=== PATIENT | female | born 1985 | race Caucasian/White ===

== ENCOUNTER 2024-12-04 11:15 | Observation (INO) | payer OTHER ==
--- NOTE | 2024-12-04 12:07 | ERPHSYRPT ---
- History of Present Illness Time Seen by Provider: 12/04/24 12:00 Source: patient Exam Limitations: no limitations Patient Subjective Stated Complaint: pt states that she has been sober for 9 months. pt states that she drank a wine bottle size of vodka last night Triage Nursing Assessment: pt came into the er via wheelchair; pt is axo x4; c/o withdrawal; pt states 7/10 pain to RUQ; active bowel sounds in all quads; c/o N/V; pt is screaming and yelling out; pt is crying; pt is theatrical with body movement; skin PDW; no respiratory distress present; hypertensive Physician History: 39-year-old female presents to our ED for evaluation of nausea vomiting epigastric pain. Patient believes she is in alcohol withdrawal. Patient states that she has been sober from alcohol for approximately 9 months. Patient states her kids were recently taken from her. Patient went on a drinking binge last night. Patient states she had a wine bottle full of vodka. Her last drink was at approximately midnight. Patient awoke this morning feeling ill with nausea and vomiting. Patient's epigastric pain radiates to the right upper quadrant. No back radiation. No trauma no fever. Symptoms are mild to moderate in intensity. Palpation reproduces symptomology. Patient otherwise feels well. She voices no other complaints or concerns at this time. Portions of this note were created with voice recognition technology. There may be grammatical, spelling, punctuation or sound alike errors Timing/Duration: today Severity: moderate Modifying Factors: Improves With: nothing Associated Symptoms: denies symptoms Allergies/Adverse Reactions: Penicillins Allergy (Verified 12/04/24 11:23) Rash Home Medications: Ondansetron ODT 4 MG [Zofran Odt 4 mg] 1 tab PO Q4HPRN PRN 12/04/24 [History] hydrOXYzine HCL [Hydroxyzine HCl] 50 mg PO DAILY PRN 12/04/24 [History] Hx Tetanus, Diphtheria Vaccination/Date Given: Yes Hx Influenza Vaccination/Date Given: Yes Hx Pneumococcal Vaccination/Date Given: No Travel Risk - International Travel Have you traveled outside of the country in past 3 weeks: No - Emerging Infectious Disease Are you exhibiting symptoms associated with any current EIDs: Yes Symptoms: Vomitting - Review of Systems Constitutional: No Symptoms (2.), No Fever, No Chills Eyes: No Symptoms Ears, Nose, & Throat: No Symptoms Respiratory: No Symptoms, No Cough, No Dyspnea Cardiac: No Symptoms, No Chest Pain, No Edema, No Syncope Abdominal/Gastrointestinal: No Symptoms, No Abdominal Pain, No Nausea, No Vomiting, No Diarrhea Genitourinary Symptoms: No Symptoms, No Dysuria Musculoskeletal: No Symptoms, No Back Pain, No Neck Pain Skin: No Symptoms, No Rash Neurological: No Symptoms, No Dizziness, No Focal Weakness, No Sensory Changes Psychological: No Symptoms Endocrine: No Symptoms Hematologic/Lymphatic: No Symptoms Immunological/Allergic: No Symptoms All Other Systems: Reviewed and Negative - Past Medical History Pertinent Past Medical History: Yes Neurological History: No Pertinent History ENT History: No Pertinent History Cardiac History: No Pertinent History Respiratory History: No Pertinent History Endocrine Medical History: No Pertinent History Musculoskeletal History: No Pertinent History GI Medical History: Pancreatitis History: No Pertinent History Psycho-Social History: Anxiety Female Reproductive Disorders: No Pertinent History - Past Surgical History Past Surgical History: Yes Neuro Surgical History: No Pertinent History Cardiac: No Pertinent History Respiratory: No Pertinent History Gastrointestinal: No Pertinent History Genitourinary: No Pertinent History Musculoskeletal: No Pertinent History Female Surgical History: Hysterectomy, Tubal Ligation, Breast Implant - Female History Hx Last Menstrual Period: hysterectomy Hx Now: No - Social History Smoking Status: Light tobacco smoker Exposure to second hand smoke: Yes Drug Use: none - Social Determinants of Health Will the patient participate in the screening: Yes Do you worry about a steady place to live?: No Do you have any problems with any of the following?: No known problems In the past 12 months,have you had to go without utilities?: No Transportation Issues: No Has anyone in your support network made you feel unsafe?: No Have you or anyone in your house had to go without enough: No - Nursing Vital Signs Nursing Vital Signs: Initial Vital Signs Temperature 98.2 F 12/04/24 11:25 Pulse Rate 99 H 12/04/24 11:25 Respiratory Rate 24 12/04/24 11:25 Blood Pressure 144/87 12/04/24 11:25 O2 Sat by Pulse Oximetry 98 12/04/24 11:25 Pain Scale Pain Intensity 0 - Physical Exam General Appearance: no apparent distress, alert, other (Patient is vomiting and shaking. Patient also crying.) Eye Exam: PERRL/EOMI, eyes nml inspection Ears, Nose, Throat Exam: normal ENT inspection, TMs normal, pharynx normal, moist mucous membranes Neck Exam: normal inspection, non-tender, supple, full range of motion Respiratory Exam: normal breath sounds, lungs clear, airway intact, No respiratory distress Cardiovascular Exam: regular rate/rhythm, normal heart sounds, normal peripheral pulses Gastrointestinal/Abdomen Exam: soft, normal bowel sounds, No tenderness, No mass Back Exam: normal inspection, normal range of motion, No CVA tenderness, No vertebral tenderness Extremity Exam: normal inspection, normal range of motion, pelvis stable Neurologic Exam: alert, oriented x 3, cooperative, normal mood/affect, sensation nml, No motor deficits Skin Exam: normal color, warm, dry, No rash Lymphatic Exam: No adenopathy SpO2 Interpretation: normal SpO2: 97 O2 Delivery: Room Air - Course Nursing assessment & vital signs reviewed: Yes - CT Exams Abdomen/Pelvis CT Interpretation: Tele-radiologist Report (No acute findings) Ordered Tests: Active Orders 24 hr Category Date Time Status Drug Safety Specialist STAT Care 12/04/24 12:04 Active IV Insertion STAT Care 12/04/24 12:03 Active ABDOMEN AND PELVIS W CONTRAST [CT] Stat Exams 12/04/24 12:56 Completed ACETAMINOPHEN Stat Lab 12/04/24 12:25 Completed CBC W DIFF Stat Lab 12/04/24 12:25 Completed CMP Stat Lab 12/04/24 12:25 Completed ETHYL ALCOHOL Stat Lab 12/04/24 12:25 Completed HCG QUALITATIVE, URINE Stat Lab 12/04/24 Completed LIPASE Stat Lab 12/04/24 12:25 Completed SALICYLATE Stat Lab 12/04/24 12:25 Completed TROPONIN Q4H Lab 12/04/24 12:25 Completed TROPONIN Q4H Lab 12/04/24 16:15 Ordered TROPONIN Q4H Lab 12/04/24 20:15 Ordered UA W/RFX UR CULTURE Stat Lab 12/04/24 12:33 Completed Urine Triage Profile Stat Lab 12/04/24 12:33 Completed Transfer Order Routine Transfer 12/04/24 Ordered Medication Summary Discontinued Medications Generic Name Dose Route Start Last Admin Trade Name Freq PRN Reason Stop Dose Admin Sodium Chloride 1,000 mls @ 999 mls/hr 12/04/24 12:03 12/04/24 13:23 Sodium Chloride 0.9% 1000 Ml IV 12/04/24 13:03 Infused .Q1H1M STA Infusion Sodium Chloride Confirm 12/04/24 12:11 Sodium Chloride 0.9% 1000 Ml Administered 12/04/24 12:12 Dose 1,000 mls @ ud .ROUTE .STK-MED ONE Lorazepam 1 mg 12/04/24 12:05 12/04/24 12:12 Lorazepam 2 Mg/1 Ml 2 Mg Vial IV 12/04/24 12:06 1 mg STAT ONE Administration Lorazepam Confirm 12/04/24 12:10 Lorazepam 2 Mg/1 Ml 2 Mg Vial Administered 12/04/24 12:11 Dose 2 mg .ROUTE .STK-MED ONE Lorazepam 1 mg 12/04/24 13:32 12/04/24 13:35 Lorazepam 2 Mg/1 Ml 2 Mg Vial IV 12/04/24 13:33 1 mg STAT ONE Administration Lorazepam Confirm 12/04/24 13:34 Lorazepam 2 Mg/1 Ml 2 Mg Vial Administered 12/04/24 13:35 Dose 2 mg .ROUTE .STK-MED ONE Ondansetron HCl 4 mg 12/04/24 12:20 12/04/24 12:21 Ondansetron Hcl 4 Mg/2 Ml Vial IV 12/04/24 12:21 4 mg STAT ONE Administration Ondansetron HCl Confirm 12/04/24 12:20 Ondansetron Hcl 4 Mg/2 Ml Vial Administered 12/04/24 12:21 Dose 4 mg .ROUTE .STK-MED ONE Lab/Rad Data: Laboratory Result Diagrams 12/04/24 12:25 12/04/24 12:25 Laboratory Results 12/04/24 12/04/24 12/04/24 Range/Units Unknown 12:33 12:33 WBC (3.98-10.04) x10^3/uL RBC (3.93-5.22) x10^6/uL Hgb (11.2-15.7) g/dL Hct (34.1-44.9) % MCV (79.4-94.8) fL MCH (25.6-32.2) pg MCHC (32.2-35.5) g/dL RDW (11.7-14.4) % Plt Count (182-369) x10^3/uL MPV (9.4-12.3) fL Gran % (34.0-71.1) % Immature Gran % (Auto) (0.001-0.429) % Nucleat RBC Rel Count (0.00-0.2) % Eos # (Auto) (0.04-0.36) x10^3/uL Immature Gran # (Auto) (0.001-0.031) x10^3u/L Absolute Lymphs (auto) (1.18-3.74) x10^3/uL Absolute Monos (auto) (0.24-0.86) x10^3/uL Absolute Nucleated RBC (0.00-0.012) x10^3u/L Lymphocytes % (19.3-51.7) % Monocytes % (4.7-12.5) % Eosinophils % (0.7-5.8) % Basophils % (0.1-1.2) % Absolute Granulocytes (1.56-6.13) x10^3/uL Basophils # (0.01-0.08) x10^3/uL Sodium (135-145) mmol/L Potassium (3.5-5.1) mmol/L Chloride (98-107) mmol/L Carbon Dioxide (22-30) mmol/L Anion Gap (5-15) MEQ/L BUN (7-17) mg/dL Creatinine (0.52-1.04) mg/dL Estimated GFR ML/MIN Glucose (74-106) mg/dL Calcium (8.4-10.2) mg/dL Total Bilirubin (0.2-1.3) mg/dL AST (14-36) U/L ALT (0-35) U/L Alkaline Phosphatase (38-126) U/L Troponin I (0.000-0.033) ng/mL Serum Total Protein (6.3-8.2) g/dL Albumin (3.5-5.0) g/dL Lipase (23-300) U/L Urine Color Yellow (Yellow) Urine Appearance Cloudy A (Clear) Urine pH 8.0 (4.6-8.0) Ur Specific [place] 1.020 (1.005-1.030) Urine Protein Trace A (Negative) Urine Glucose (UA) Negative (Negative) mg/dL Urine Ketones Negative (Negative) Urine Blood Negative (Negative) Urine Nitrite Negative (Negative) Urine Bilirubin Negative (Negative) Urine Urobilinogen 0.2 (0.2) mg/dL Ur Leukocyte Esterase Negative (Negative) U Hyaline Cast (Auto) NONE SEEN (0-2) /LPF Urine Microscopic RBC 0-2 (0-5) /HPF Urine Microscopic WBC 6-10 A (0-5) /HPF Ur Epithelial Cells Many A (None Seen) /HPF Urine Bacteria Rare A (None Seen) /HPF Urine Culture Reflexed NO (NO) Urine HCG, Qual NEGATIVE (NEGATIVE) Salicylates (2-20) mg/dL Urine Opiates Level NEGATIVE (NEGATIVE) Ur Methadone NEGATIVE (NEGATIVE) Acetaminophen (10-30) ug/ml Urine Barbiturates NEGATIVE (NEGATIVE) Ur Phencyclidine (PCP) NEGATIVE (NEGATIVE) Urine Amphetamine NEGATIVE (NEGATIVE) U Benzodiazepine Level NEGATIVE (NEGATIVE) Urine Cocaine NEGATIVE (NEGATIVE) Urine Marijuana (THC) POSITIVE A (NEGATIVE) Ethyl Alcohol (0-10) mg/dL 12/04/24 12/04/24 12/04/24 Range/Units 12:25 12:25 12:25 WBC (3.98-10.04) x10^3/uL RBC (3.93-5.22) x10^6/uL Hgb (11.2-15.7) g/dL Hct (34.1-44.9) % MCV (79.4-94.8) fL MCH (25.6-32.2) pg MCHC (32.2-35.5) g/dL RDW (11.7-14.4) % Plt Count (182-369) x10^3/uL MPV (9.4-12.3) fL Gran % (34.0-71.1) % Immature Gran % (Auto) (0.001-0.429) % Nucleat RBC Rel Count (0.00-0.2) % Eos # (Auto) (0.04-0.36) x10^3/uL Immature Gran # (Auto) (0.001-0.031) x10^3u/L Absolute Lymphs (auto) (1.18-3.74) x10^3/uL Absolute Monos (auto) (0.24-0.86) x10^3/uL Absolute Nucleated RBC (0.00-0.012) x10^3u/L Lymphocytes % (19.3-51.7) % Monocytes % (4.7-12.5) % Eosinophils % (0.7-5.8) % Basophils % (0.1-1.2) % Absolute Granulocytes (1.56-6.13) x10^3/uL Basophils # (0.01-0.08) x10^3/uL Sodium 138 (135-145) mmol/L Potassium 3.6 (3.5-5.1) mmol/L Chloride 107 (98-107) mmol/L Carbon Dioxide 20 L (22-30) mmol/L Anion Gap 14.7 (5-15) MEQ/L BUN 4 L (7-17) mg/dL Creatinine 0.66 (0.52-1.04) mg/dL Estimated GFR 113.0 ML/MIN Glucose 163 H (74-106) mg/dL Calcium 9.2 (8.4-10.2) mg/dL Total Bilirubin 0.90 (0.2-1.3) mg/dL AST 42 H (14-36) U/L ALT 29 (0-35) U/L Alkaline Phosphatase 71 (38-126) U/L Troponin I < 0.012 (0.000-0.033) ng/mL Serum Total Protein 7.7 (6.3-8.2) g/dL Albumin 4.3 (3.5-5.0) g/dL Lipase 61 (23-300) U/L Urine Color (Yellow) Urine Appearance (Clear) Urine pH (4.6-8.0) Ur Specific [place] (1.005-1.030) Urine Protein (Negative) Urine Glucose (UA) (Negative) mg/dL Urine Ketones (Negative) Urine Blood (Negative) Urine Nitrite (Negative) Urine Bilirubin (Negative) Urine Urobilinogen (0.2) mg/dL Ur Leukocyte Esterase (Negative) U Hyaline Cast (Auto) (0-2) /LPF Urine Microscopic RBC (0-5) /HPF Urine Microscopic WBC (0-5) /HPF Ur Epithelial Cells (None Seen) /HPF Urine Bacteria (None Seen) /HPF Urine Culture Reflexed (NO) Urine HCG, Qual (NEGATIVE) Salicylates < 1.0 L (2-20) mg/dL Urine Opiates Level (NEGATIVE) Ur Methadone (NEGATIVE) Acetaminophen < 10 L (10-30) ug/ml Urine Barbiturates (NEGATIVE) Ur Phencyclidine (PCP) (NEGATIVE) Urine Amphetamine (NEGATIVE) U Benzodiazepine Level (NEGATIVE) Urine Cocaine (NEGATIVE) Urine Marijuana (THC) (NEGATIVE) Ethyl Alcohol < 10 (0-10) mg/dL 12/04/24 Range/Units 12:25 WBC 8.3 (3.98-10.04) x10^3/uL RBC 4.92 (3.93-5.22) x10^6/uL Hgb 16.2 H (11.2-15.7) g/dL Hct 46.8 H (34.1-44.9) % MCV 95.1 H (79.4-94.8) fL MCH 32.9 H (25.6-32.2) pg MCHC 34.6 (32.2-35.5) g/dL RDW 12.9 (11.7-14.4) % Plt Count 254 (182-369) x10^3/uL MPV 8.3 L (9.4-12.3) fL Gran % 69.4 (34.0-71.1) % Immature Gran % (Auto) 0.4 (0.001-0.429) % Nucleat RBC Rel Count 0.0 (0.00-0.2) % Eos # (Auto) 0.08 (0.04-0.36) x10^3/uL Immature Gran # (Auto) 0.03 (0.001-0.031) x10^3u/L Absolute Lymphs (auto) 1.56 (1.18-3.74) x10^3/uL Absolute Monos (auto) 0.77 (0.24-0.86) x10^3/uL Absolute Nucleated RBC 0.00 (0.00-0.012) x10^3u/L Lymphocytes % 18.8 L (19.3-51.7) % Monocytes % 9.3 (4.7-12.5) % Eosinophils % 1.0 (0.7-5.8) % Basophils % 1.1 (0.1-1.2) % Absolute Granulocytes 5.79 (1.56-6.13) x10^3/uL Basophils # 0.09 H (0.01-0.08) x10^3/uL Sodium (135-145) mmol/L Potassium (3.5-5.1) mmol/L Chloride (98-107) mmol/L Carbon Dioxide (22-30) mmol/L Anion Gap (5-15) MEQ/L BUN (7-17) mg/dL Creatinine (0.52-1.04) mg/dL Estimated GFR ML/MIN Glucose (74-106) mg/dL Calcium (8.4-10.2) mg/dL Total Bilirubin (0.2-1.3) mg/dL AST (14-36) U/L ALT (0-35) U/L Alkaline Phosphatase (38-126) U/L Troponin I (0.000-0.033) ng/mL Serum Total Protein (6.3-8.2) g/dL Albumin (3.5-5.0) g/dL Lipase (23-300) U/L Urine Color (Yellow) Urine Appearance (Clear) Urine pH (4.6-8.0) Ur Specific [place] (1.005-1.030) Urine Protein (Negative) Urine Glucose (UA) (Negative) mg/dL Urine Ketones (Negative) Urine Blood (Negative) Urine Nitrite (Negative) Urine Bilirubin (Negative) Urine Urobilinogen (0.2) mg/dL Ur Leukocyte Esterase (Negative) U Hyaline Cast (Auto) (0-2) /LPF Urine Microscopic RBC (0-5) /HPF Urine Microscopic WBC (0-5) /HPF Ur Epithelial Cells (None Seen) /HPF Urine Bacteria (None Seen) /HPF Urine Culture Reflexed (NO) Urine HCG, Qual (NEGATIVE) Salicylates (2-20) mg/dL Urine Opiates Level (NEGATIVE) Ur Methadone (NEGATIVE) Acetaminophen (10-30) ug/ml Urine Barbiturates (NEGATIVE) Ur Phencyclidine (PCP) (NEGATIVE) Urine Amphetamine (NEGATIVE) U Benzodiazepine Level (NEGATIVE) Urine Cocaine (NEGATIVE) Urine Marijuana (THC) (NEGATIVE) Ethyl Alcohol (0-10) mg/dL - Progress Progress: improved Progress Note: 39-year-old female presents to our ED for evaluation of alcohol withdrawal. Up on arrival patient was experiencing nausea and vomiting. Patient appeared very upset stating that her was trying to take custody of her children. Physical exam revealed epigastric tenderness and right upper quadrant tenderness. IV fluids infused. Patient received 2 doses of 1 mg Ativan. Ativan improved her symptomology. CT abdomen pelvis negative for acute intra- abdominal pathology. Case discussed with who accepts admission to observation at 3:25 PM. Plan of care discussed with patient. She agrees to admission to [facility] for further evaluation and treatment. Portions of this note were created with voice recognition technology. There may be grammatical, spelling, punctuation or sound alike errors Complexity of problem addressed is moderate acute complicated. Critical care time 75 to 104 minutes.. Immediate intervention implemented to prevent further deterioration. Complexity of data reviewed and analyzed is extensive. Test o rdered test reviewed results analyzed and correlated clinically with history and physical exam. Management discussed with hospitalist Dr Goyal who accepts admission to observation at 3:25 PM. Risk of complication and or risk of morbidity/mortality of patient management is high. Patient requires h ospitalization for further evaluation and treatment. Vital stable. Time spent to admit patient is approximately 15 minutes. Plan of care established for shared decision making. No social determinants of health present to impede follow-up. Portions of this note were created with voice recognition technology. There may be grammatical, spelling, punctuation or sound alike errors. 12/04/24 15:29 Counseled pt/family regarding: lab results, diagnosis, rad results - Departure Departure Disposition: Observation Clinical Impression: Alcohol withdrawal Condition: Stable Critical Care Time: Yes Critical Care Time(excluding separately billable procedures): Critical 75-104 mins Referrals: DOCTOR,NO FAMILY [Primary Care Provider] - Follow up/PCP as directed
[2024-12-04] MEDS ORDERED: Ativan 2 MG/1 ML VIAL ONE ×2 (12:10→13:34)
[2024-12-04] MEDS ORDERED: Sodium Chloride 0.9% 1000 ML 1,000 ML ONE (12:11)
[2024-12-04] MEDS: Ativan 2 MG/1 ML VIAL IV ONE ×2 (12:12→13:35)
[2024-12-04] MEDS: Sodium Chloride 0.9% 1000 ML 1,000 ML IV STA (12:12)
[2024-12-04] MEDS ORDERED: Zofran 4 MG/2 ML VIAL ONE (12:20)
[2024-12-04] MEDS: Zofran 4 MG/2 ML VIAL IV ONE (12:21)
[2024-12-04 12:26] LABS: Absolute Neutrophil Ct (ANC) 5.79 x10^3/uL (1.56-6.13); BASOPHIL % 1.1 % (0.1-1.2); Basophil (Absolute #) 0.09 x10^3/uL (0.01-0.08); Eosinophil (Absolute #) 0.08 x10^3/uL (0.04-0.36); Hematocrit 46.8 % (34.1-44.9); Hemoglobin 16.2 g/dL (11.2-15.7); IMMATURE GRAN # 0.03 x10^3u/L (0.001-0.031); IMMATURE GRAN % 0.4 % (0.001-0.429); Lymphocyte (Absolute #) 1.56 x10^3/uL (1.18-3.74); Lymphocytes % 18.8 % (19.3-51.7); Mean Cell Volume 95.1 fL (79.4-94.8); Mean Corpuscular Hemoglobin 32.9 pg (25.6-32.2); Mean Corpuscular Hgb Concent. 34.6 g/dL (32.2-35.5); Mean Platelet Volume 8.3 fL (9.4-12.3); Monocyte (Absolute #) 0.77 x10^3/uL (0.24-0.86); Monocytes % 9.3 % (4.7-12.5); Neutrophil % 69.4 % (34.0-71.1); Platelet Count 254 x10^3/uL (182-369); Red Blood Count 4.92 x10^6/uL (3.93-5.22); Red Cell Distribution Width 12.9 % (11.7-14.4); White Blood Count 8.3 x10^3/uL (3.98-10.04)
[2024-12-04 12:31] LABS: Appearance Cloudy (Clear); Bilirubin Negative (Negative); Blood Negative (Negative); Glucose, Urine Negative (Negative); Ketones Negative (Negative); Leukocyte Esterase Negative (Negative); Nitrite Negative (Negative); Protein,Urine Dip Trace (Negative); Urobilinogen 0.2 mg/dL (0.2)
[2024-12-04 12:33] LABS: HCG URINE TEST NEGATIVE (NEGATIVE)
[2024-12-04 12:41] LABS: ACETAMINOPHEN < 10 ug/ml (10-30); ALBUMIN 4.3 g/dL (3.5-5.0); ALKALINE PHOSPHATASE 71 U/L (38-126); ANION GAP 14.7 MEQ/L (5-15); BLOOD UREA NITROGEN 4 mg/dL (7-17); CHLORIDE 107 mmol/L (98-107); Calcium 9.2 mg/dL (8.4-10.2); Carbon Dioxide 20 mmol/L (22-30); Creatinine 1 0.66 mg/dL (0.52-1.04); ETHYL ALCOHOL < 10 mg/dL (0-10); Glucose 163 mg/dL (74-106); Potassium 3.6 mmol/L (3.5-5.1); SALICYLATE < 1.0 mg/dL (2-20); SGOT/AST 42 U/L (14-36); SGPT/ALT 29 U/L (0-35); SODIUM 138 mmol/L (135-145); Total Protein 7.7 g/dL (6.3-8.2)
[2024-12-04 12:58] LABS: Amphetamine,Urine NEGATIVE (NEGATIVE); Barbiturate,Urine NEGATIVE (NEGATIVE); Benzodiazepine,Urine NEGATIVE (NEGATIVE); Methadone,Urine NEGATIVE (NEGATIVE); Opiate,Urine NEGATIVE (NEGATIVE); PCP,Urine NEGATIVE (NEGATIVE); THC,Urine POSITIVE (NEGATIVE)
[2024-12-04 13:01] LABS: Cocaine,Urine NEGATIVE (NEGATIVE)
[2024-12-04 13:08] LABS: Bacteria Rare /HPF (None Seen); Epithelial Cells Many /HPF (None Seen); Hyaline Casts NONE SEEN /LPF (0-2); RBC 0-2 /HPF (0-5)
--- NOTE | 2024-12-04 15:03 | XRAY ---
Indication: Right upper quadrant pain. Multiple contiguous axial images obtained through the abdomen and pelvis using 80 cc Isovue 370 contrast. Comparison: None Lung bases demonstrates dependent atelectasis. No infiltrate or effusion. Heart not enlarged. Small hiatal hernia. Incidental incompletely visualized bilateral breast implants. Noncontrasted stomach and bowel loops appear nonobstructed with normal appendix. Previous cholecystectomy and hysterectomy. No free fluid/air. Remaining liver, pancreas, spleen, adrenal glands, kidneys, ureters, bladder, and aorta are normal in CT appearance and attenuation. No pathologic retroperitoneal lymphadenopathy. Osseous structures intact. No ventral inguinal hernias. Impression: Small hiatal hernia. Remaining CT abdomen/pelvis with contrast exam is normal.
[2024-12-04] MEDS: Sodium Chloride 0.9% 1000 ML 1,000 ML IV SCH (18:04)
--- NOTE | 2024-12-04 18:12 | PCM.HP ---
History of Present Illness - Chief Complaint Chief Complaint: anxiety, vomiting Date: 12/04/24 History of Present Illness: is a 39 year old female with PMHX ETOH abuse, and anxiety. She presented to our ED for evaluation of nausea, vomiting, epigastric pain. Patient believes she is in alcohol withdrawal. Alcohol level on lab testing normal and no alcohol present. Patient states that she has been sober from alcohol for approximately 9 months and in a treatment program in [place], [place]. Patient states her kids were recently taken from her. Patient went on a drinking binge last night. Patient states she had a wine bottle full of vodka. Her last drink was at approximately midnight. Patient awoke this morning feeling ill with nausea and vomiting. She admits to eating 2 THC gummies last night and UDs + for THC. Patient's epigastric pain radiates to the right upper quadrant, pain 6/10. No back radiation. No trauma no fever. Symptoms are mild to moderate in intensity. Palpation reproduces symptomology. CT abd/pelvis negative. Lipase WNL. Labs overall non-concerning. She denies suicidal or homicidal ideation. Will consult psych. increase hydroxyzine to BID dosing. Tylenol and heating pad added for pain. Zofran PRN IV for nausea. She last vomited in the ER. She denies CP, SOB, diarrhea. - Review of Systems Constitutional: No Fever, No Chills Eyes: No Symptoms Ears, Nose, & Throat: No Symptoms Respiratory: No Cough, No Short Of Breath Cardiac: No Chest Pain, No Edema, No Syncope Abdominal/Gastrointestinal: Abdominal Pain, No Nausea, No Vomiting, No Diarrhea Genitourinary Symptoms: No Dysuria Musculoskeletal: No Back Pain, No Neck Pain Skin: No Rash Neurological: No Dizziness, No Focal Weakness, No Sensory Changes Psychological: No Symptoms, Anxiety Endocrine: No Symptoms Hematologic/Lymphatic: No Symptoms Immunological/Allergic: No Symptoms Medications & Allergies Home Medications: Home Medication List Ondansetron ODT 4 MG [Zofran Odt 4 mg] 1 tab PO Q4HPRN PRN 12/04/24 [History Confirmed 12/04/24] hydrOXYzine HCL [Hydroxyzine HCl] 50 mg PO DAILY PRN 12/04/24 [History Confirmed 12/04/24] Allergies/Adverse Reactions: Allergies Allergy/AdvReac Type Severity Reaction Status Date / Time Penicillins Allergy Rash Verified 12/04/24 11:23 - Past Medical History Past Medical History: Yes Neurological History: No Pertinent History ENT History: No Pertinent History Cardiac History: No Pertinent History Respiratory History: No Pertinent History Endocrine Medical History: No Pertinent History Musculoskelatal History: No Pertinent History GI Medical History: Pancreatitis History: No Pertinent History Pyscho-Social History: Anxiety Reproductive Disorders: No Pertinent History - Female History Hx Last Menstrual Period: hysterectomy Are you now?: No - Past Surgical History Past Surgical History: Yes Neuro Surgical History: No Pertinent History Cardiac History: No Pertinent History Respiratory Surgery: No Pertinent History GI Surgical History: No Pertinent History Genitourinary Surgical Hx: No Pertinent History Musculskeletal Surgical Hx: No Pertinent History Female Surgical History: Hysterectomy, Tubal Ligation, Breast Implant - Social History Smoking Status: Light tobacco smoker Exposure to second hand smoke: Yes Alcohol: Rarely Drug Use: none - Social Determinants of Health Will the patient participate in the screening: Yes Do you worry about a steady place to live?: No Do you have any problems with any of the following?: No known problems In the past 12 months,have you had to go without utilities?: No Have you or anyone in your house had to go without enough: No Transportation Issues: No Has anyone in your support network made you feel unsafe?: No - Physical Exam Vital Signs: Vital Signs - 24 hr Temp Pulse Resp BP BP Pulse Ox 12/04/24 17:16 97.6 F 91 H 17 139/72 93 L 12/04/24 17:00 69 133/87 96 12/04/24 16:31 72 125/88 97 12/04/24 16:00 81 135/79 96 12/04/24 15:40 97 12/04/24 15:30 63 132/84 97 12/04/24 15:00 65 140/81 98 12/04/24 14:30 63 143/85 97 12/04/24 14:03 61 18 133/80 98 12/04/24 13:30 129/76 12/04/24 13:00 64 142/92 97 12/04/24 12:30 65 142/96 96 12/04/24 12:00 64 129/103 97 12/04/24 11:31 101 H 147/106 97 12/04/24 11:25 98.2 F 99 H 24 144/87 98 General Appearance: no apparent distress, alert Neurologic Exam: alert, oriented x 3, cooperative, nml cerebellar function, nml station & gait, sensation nml, other (anxiety), No motor deficits Eye Exam: PERRL/EOMI, eyes nml inspection Ears, Nose, Throat Exam: normal ENT inspection, TMs normal, pharynx normal, moist mucous membranes Neck Exam: normal inspection, non-tender, supple, full range of motion Respiratory Exam: normal breath sounds, lungs clear, No respiratory distress Cardiovascular Exam: regular rate/rhythm, normal heart sounds, normal peripheral pulses Gastrointestinal/Abdomen Exam: soft, normal bowel sounds, No tenderness, No mass Back Exam: normal inspection, normal range of motion, No CVA tenderness, No vertebral tenderness Extremity Exam: normal inspection, normal range of motion, pelvis stable Skin Exam: normal color, warm, dry, No rash Lymphatic Exam: No adenopathy Results - Labs Lab/Micro Results: Lab Results-Last 24 Hours 12/04/24 12/04/24 12/04/24 Range/Units 12:25 12:25 12:25 WBC 8.3 (3.98-10.04) x10^3/uL RBC 4.92 (3.93-5.22) x10^6/uL Hgb 16.2 H (11.2-15.7) g/dL Hct 46.8 H (34.1-44.9) % MCV 95.1 H (79.4-94.8) fL MCH 32.9 H (25.6-32.2) pg MCHC 34.6 (32.2-35.5) g/dL RDW 12.9 (11.7-14.4) % Plt Count 254 (182-369) x10^3/uL MPV 8.3 L (9.4-12.3) fL Gran % 69.4 (34.0-71.1) % Immature Gran % (Auto) 0.4 (0.001-0.429) % Nucleat RBC Rel Count 0.0 (0.00-0.2) % Eos # (Auto) 0.08 (0.04-0.36) x10^3/uL Immature Gran # (Auto) 0.03 (0.001-0.031) x10^3u/L Absolute Lymphs (auto) 1.56 (1.18-3.74) x10^3/uL Absolute Monos (auto) 0.77 (0.24-0.86) x10^3/uL Absolute Nucleated RBC 0.00 (0.00-0.012) x10^3u/L Lymphocytes % 18.8 L (19.3-51.7) % Monocytes % 9.3 (4.7-12.5) % Eosinophils % 1.0 (0.7-5.8) % Basophils % 1.1 (0.1-1.2) % Absolute Granulocytes 5.79 (1.56-6.13) x10^3/uL Basophils # 0.09 H (0.01-0.08) x10^3/uL Sodium 138 (135-145) mmol/L Potassium 3.6 (3.5-5.1) mmol/L Chloride 107 (98-107) mmol/L Carbon Dioxide 20 L (22-30) mmol/L Anion Gap 14.7 (5-15) MEQ/L BUN 4 L (7-17) mg/dL Creatinine 0.66 (0.52-1.04) mg/dL Estimated GFR 113.0 ML/MIN Glucose 163 H (74-106) mg/dL Calcium 9.2 (8.4-10.2) mg/dL Total Bilirubin 0.90 (0.2-1.3) mg/dL AST 42 H (14-36) U/L ALT 29 (0-35) U/L Alkaline Phosphatase 71 (38-126) U/L Troponin I (0.000-0.033) ng/mL Serum Total Protein 7.7 (6.3-8.2) g/dL Albumin 4.3 (3.5-5.0) g/dL Lipase 61 (23-300) U/L Urine Color (Yellow) Urine Appearance (Clear) Urine pH (4.6-8.0) Ur Specific [place] (1.005-1.030) Urine Protein (Negative) Urine Glucose (UA) (Negative) mg/dL Urine Ketones (Negative) Urine Blood (Negative) Urine Nitrite (Negative) Urine Bilirubin (Negative) Urine Urobilinogen (0.2) mg/dL Ur Leukocyte Esterase (Negative) U Hyaline Cast (Auto) (0-2) /LPF Urine Microscopic RBC (0-5) /HPF Urine Microscopic WBC (0-5) /HPF Ur Epithelial Cells (None Seen) /HPF Urine Bacteria (None Seen) /HPF Urine Culture Reflexed (NO) Urine HCG, Qual (NEGATIVE) Salicylates < 1.0 L (2-20) mg/dL Urine Opiates Level (NEGATIVE) Ur Methadone (NEGATIVE) Acetaminophen < 10 L (10-30) ug/ml Urine Barbiturates (NEGATIVE) Ur Phencyclidine (PCP) (NEGATIVE) Urine Amphetamine (NEGATIVE) U Benzodiazepine Level (NEGATIVE) Urine Cocaine (NEGATIVE) Urine Marijuana (THC) (NEGATIVE) Ethyl Alcohol < 10 (0-10) mg/dL 12/04/24 12/04/24 12/04/24 Range/Units 12:25 12:33 12:33 WBC (3.98-10.04) x10^3/uL RBC (3.93-5.22) x10^6/uL Hgb (11.2-15.7) g/dL Hct (34.1-44.9) % MCV (79.4-94.8) fL MCH (25.6-32.2) pg MCHC (32.2-35.5) g/dL RDW (11.7-14.4) % Plt Count (182-369) x10^3/uL MPV (9.4-12.3) fL Gran % (34.0-71.1) % Immature Gran % (Auto) (0.001-0.429) % Nucleat RBC Rel Count (0.00-0.2) % Eos # (Auto) (0.04-0.36) x10^3/uL Immature Gran # (Auto) (0.001-0.031) x10^3u/L Absolute Lymphs (auto) (1.18-3.74) x10^3/uL Absolute Monos (auto) (0.24-0.86) x10^3/uL Absolute Nucleated RBC (0.00-0.012) x10^3u/L Lymphocytes % (19.3-51.7) % Monocytes % (4.7-12.5) % Eosinophils % (0.7-5.8) % Basophils % (0.1-1.2) % Absolute Granulocytes (1.56-6.13) x10^3/uL Basophils # (0.01-0.08) x10^3/uL Sodium (135-145) mmol/L Potassium (3.5-5.1) mmol/L Chloride (98-107) mmol/L Carbon Dioxide (22-30) mmol/L Anion Gap (5-15) MEQ/L BUN (7-17) mg/dL Creatinine (0.52-1.04) mg/dL Estimated GFR ML/MIN Glucose (74-106) mg/dL Calcium (8.4-10.2) mg/dL Total Bilirubin (0.2-1.3) mg/dL AST (14-36) U/L ALT (0-35) U/L Alkaline Phosphatase (38-126) U/L Troponin I < 0.012 (0.000-0.033) ng/mL Serum Total Protein (6.3-8.2) g/dL Albumin (3.5-5.0) g/dL Lipase (23-300) U/L Urine Color Yellow (Yellow) Urine Appearance Cloudy A (Clear) Urine pH 8.0 (4.6-8.0) Ur Specific [place] 1.020 (1.005-1.030) Urine Protein Trace A (Negative) Urine Glucose (UA) Negative (Negative) mg/dL Urine Ketones Negative (Negative) Urine Blood Negative (Negative) Urine Nitrite Negative (Negative) Urine Bilirubin Negative (Negative) Urine Urobilinogen 0.2 (0.2) mg/dL Ur Leukocyte Esterase Negative (Negative) U Hyaline Cast (Auto) NONE SEEN (0-2) /LPF Urine Microscopic RBC 0-2 (0-5) /HPF Urine Microscopic WBC 6-10 A (0-5) /HPF Ur Epithelial Cells Many A (None Seen) /HPF Urine Bacteria Rare A (None Seen) /HPF Urine Culture Reflexed NO (NO) Urine HCG, Qual (NEGATIVE) Salicylates (2-20) mg/dL Urine Opiates Level NEGATIVE (NEGATIVE) Ur Methadone NEGATIVE (NEGATIVE) Acetaminophen (10-30) ug/ml Urine Barbiturates NEGATIVE (NEGATIVE) Ur Phencyclidine (PCP) NEGATIVE (NEGATIVE) Urine Amphetamine NEGATIVE (NEGATIVE) U Benzodiazepine Level NEGATIVE (NEGATIVE) Urine Cocaine NEGATIVE (NEGATIVE) Urine Marijuana (THC) POSITIVE A (NEGATIVE) Ethyl Alcohol (0-10) mg/dL 12/04/24 12/04/24 Range/Units 16:10 Unknown WBC (3.98-10.04) x10^3/uL RBC (3.93-5.22) x10^6/uL Hgb (11.2-15.7) g/dL Hct (34.1-44.9) % MCV (79.4-94.8) fL MCH (25.6-32.2) pg MCHC (32.2-35.5) g/dL RDW (11.7-14.4) % Plt Count (182-369) x10^3/uL MPV (9.4-12.3) fL Gran % (34.0-71.1) % Immature Gran % (Auto) (0.001-0.429) % Nucleat RBC Rel Count (0.00-0.2) % Eos # (Auto) (0.04-0.36) x10^3/uL Immature Gran # (Auto) (0.001-0.031) x10^3u/L Absolute Lymphs (auto) (1.18-3.74) x10^3/uL Absolute Monos (auto) (0.24-0.86) x10^3/uL Absolute Nucleated RBC (0.00-0.012) x10^3u/L Lymphocytes % (19.3-51.7) % Monocytes % (4.7-12.5) % Eosinophils % (0.7-5.8) % Basophils % (0.1-1.2) % Absolute Granulocytes (1.56-6.13) x10^3/uL Basophils # (0.01-0.08) x10^3/uL Sodium (135-145) mmol/L Potassium (3.5-5.1) mmol/L Chloride (98-107) mmol/L Carbon Dioxide (22-30) mmol/L Anion Gap (5-15) MEQ/L BUN (7-17) mg/dL Creatinine (0.52-1.04) mg/dL Estimated GFR ML/MIN Glucose (74-106) mg/dL Calcium (8.4-10.2) mg/dL Total Bilirubin (0.2-1.3) mg/dL AST (14-36) U/L ALT (0-35) U/L Alkaline Phosphatase (38-126) U/L Troponin I < 0.012 (0.000-0.033) ng/mL Serum Total Protein (6.3-8.2) g/dL Albumin (3.5-5.0) g/dL Lipase (23-300) U/L Urine Color (Yellow) Urine Appearance (Clear) Urine pH (4.6-8.0) Ur Specific [place] (1.005-1.030) Urine Protein (Negative) Urine Glucose (UA) (Negative) mg/dL Urine Ketones (Negative) Urine Blood (Negative) Urine Nitrite (Negative) Urine Bilirubin (Negative) Urine Urobilinogen (0.2) mg/dL Ur Leukocyte Esterase (Negative) U Hyaline Cast (Auto) (0-2) /LPF Urine Microscopic RBC (0-5) /HPF Urine Microscopic WBC (0-5) /HPF Ur Epithelial Cells (None Seen) /HPF Urine Bacteria (None Seen) /HPF Urine Culture Reflexed (NO) Urine HCG, Qual NEGATIVE (NEGATIVE) Salicylates (2-20) mg/dL Urine Opiates Level (NEGATIVE) Ur Methadone (NEGATIVE) Acetaminophen (10-30) ug/ml Urine Barbiturates (NEGATIVE) Ur Phencyclidine (PCP) (NEGATIVE) Urine Amphetamine (NEGATIVE) U Benzodiazepine Level (NEGATIVE) Urine Cocaine (NEGATIVE) Urine Marijuana (THC) (NEGATIVE) Ethyl Alcohol (0-10) mg/dL - Radiology Impressions Radiology Exams & Impressions: Radiology Procedures Category Date Time Status ABDOMEN AND PELVIS W CONTRAST [CT] Stat Exams 12/04/24 12:56 Completed - Other Procedures and Tests Respiratory Therapy 12/04/24 17:23 EKG DAILY Assessment/Plan (1) Anxiety Current Visit: Yes Status: Acute Assessment & Plan: - psych consult - Hydroxyzine BID Code(s): F41.9 - ANXIETY DISORDER, UNSPECIFIED (2) Tetrahydrocannabinol (THC) use disorder, mild, abuse Current Visit: Yes Status: Acute Assessment & Plan: - admits to taking 2 gummies last night d/t anxiety Code(s): F12.10 - CANNABIS ABUSE, UNCOMPLICATED (3) Abdominal pain Current Visit: Yes Status: Acute Assessment & Plan: - CT abd negative - CBC, CMP reviewed - IV fluids - tylenol - heating pad Code(s): R10.9 - UNSPECIFIED ABDOMINAL PAIN
[2024-12-04] MEDS ORDERED: NON-FORMULARY ITEM (Hydroxyzine Hcl [Hydroxyzine Hcl] 50 MG Tablet) PO SCH (22:00)
[2024-12-04] MEDS ORDERED: ATARAX 25 MG ONE (22:19)
[2024-12-04] MEDS: TYLENOL 325 MG PO PRN (22:22)
[2024-12-04] MEDS: MELATONIN PO PRN (22:22)
[2024-12-04] MEDS: ATARAX 25 MG PO SCH (22:32)
[2024-12-05] MEDS: Zofran 4 MG/2 ML VIAL IV PRN (01:32)
[2024-12-05 05:39] LABS: Hematocrit 42.3 % (34.1-44.9); Hemoglobin 14.4 g/dL (11.2-15.7); Mean Cell Volume 96.8 fL (79.4-94.8); Mean Platelet Volume 8.7 fL (9.4-12.3); Platelet Count 228 x10^3/uL (182-369); Red Blood Count 4.37 x10^6/uL (3.93-5.22); Red Cell Distribution Width 12.8 % (11.7-14.4); White Blood Count 8.6 x10^3/uL (3.98-10.04)
[2024-12-05 05:55] LABS: ALBUMIN 3.5 g/dL (3.5-5.0); ANION GAP 11.7 MEQ/L (5-15); BILIRUBIN,TOTAL 2.1 mg/dL (0.2-1.3); Creatinine 1 0.69 mg/dL (0.52-1.04); EST GLOMERULAR FILTRATION RATE 111.8 ML/MIN; Total Protein 6.6 g/dL (6.3-8.2)
[2024-12-05 06:01] LABS: Potassium 2.9 mmol/L (3.5-5.1)
[2024-12-05] MEDS ORDERED: Magnesium 1 Gm / 100 Ml D5W*** 100 ML IV ONE (06:25)
[2024-12-05] MEDS: Klor Con PO SCH (06:30)
[2024-12-05] MEDS ORDERED: Magnesium Sulfate 1 GM/2 ML VIAL IV SCH (06:45)
[2024-12-05] MEDS: Magnesium 1 Gm / 100 Ml D5W*** 100 ML IV SCH (06:51)
[2024-12-05] MEDS ORDERED: Nicoderm CQ 21 MG ONE (09:23)
[2024-12-05] MEDS: Nicoderm CQ 21 MG TOP SCH (09:25)
[2024-12-05] MEDS: Magnesium Sulfate 1 GM/2 ML VIAL IV STA (10:17)
--- NOTE | 2024-12-05 10:27 | PCM.DS ---
Discharge Summary Date of Admission: 12/04/24 17:10 Date of Discharge: 12/05/24 Admitting Physician: NICOLE MULTANI MD Consults: Consults on Case 12/04/24 17:19 Consult,Chandrakant [Psychiatric Consult] ROUTINE Primary Care Provider: NO FAMILY DOCTOR Allergies Allergies Penicillins Allergy (Verified 12/04/24 11:23) [facility] Summary - Hospital Course Hospital Course: 12/04/24 is a 39 year old female with PMHX ETOH abuse, and anxiety. She presented to our ED for evaluation of nausea, vomiting, epigastric pain. Patient believes she is in alcohol withdrawal. Alcohol level on lab testing normal and no alcohol present. Patient states that she has been sober from alcohol for approximately 9 months and in a treatment program in [place], [place]. Patient states her kids were recently taken from her. Patient went on a drinking binge last night. Patient states she had a wine bottle full of vodka. Her last drink was at approximately midnight. Patient awoke this morning feeling ill with nausea and vomiting. She admits to eating 2 THC gummies last night and UDs + for THC. Patient's epigastric pain radiates to the right upper quadrant, pain 6/10. No back radiation. No trauma no fever. Symptoms are mild to moderate in intensity. Palpation reproduces symptomology. CT abd/pelvis negative. Lipase WNL. Labs overall non-concerning. She denies suicidal or homicidal ideation. Fransico saenz consult psych. increase hydroxyzine to BID dosing. Tylenol and heating pad added for pain. Zofran PRN IV for nausea. She last vomited in the ER. She denies CP, SOB, diarrhea. 12/05/24 Pt resting in bed. She is very tearful today about her recent episode of drinking. She states she has a lot of anxiety and just wants her anxiety meds. Awaiting psych consult today. She again denies suicidal and homicidal ideation today. She continues to c/o RUQ pain today she states she does not have a gallbladder. Discussed labs and CT results in detail. K+ and Mg+ low and replaced will trend. If ok with Pscyh will d/c today. - Vitals & Intake/Output Vital Signs: Vital Signs Temperature 98.1 F 12/05/24 08:00 Pulse Rate 96 H 12/05/24 08:00 Respiratory Rate 22 12/05/24 08:00 Blood Pressure 135/73 12/05/24 08:00 O2 Sat by Pulse Oximetry 99 12/05/24 08:00 Intake & Output: Intake & Output 12/02/24 12/03/24 12/04/24 12/05/24 11:59 11:59 11:59 11:59 Intake Total 3110 Balance 3110 Weight 70.9 kg 70.8 kg - Lab Result Diagrams: 12/05/24 05:30 12/05/24 12:13 Lab Results-Last 24 Hrs: Lab Results-Last 24 Hours 12/04/24 12/04/24 12/04/24 Range/Units 12:25 12:25 12:25 WBC 8.3 (3.98-10.04) x10^3/uL RBC 4.92 (3.93-5.22) x10^6/uL Hgb 16.2 H (11.2-15.7) g/dL Hct 46.8 H (34.1-44.9) % MCV 95.1 H (79.4-94.8) fL MCH 32.9 H (25.6-32.2) pg MCHC 34.6 (32.2-35.5) g/dL RDW 12.9 (11.7-14.4) % Plt Count 254 (182-369) x10^3/uL MPV 8.3 L (9.4-12.3) fL Gran % 69.4 (34.0-71.1) % Immature Gran % (Auto) 0.4 (0.001-0.429) % Nucleat RBC Rel Count 0.0 (0.00-0.2) % Eos # (Auto) 0.08 (0.04-0.36) x10^3/uL Immature Gran # (Auto) 0.03 (0.001-0.031) x10^3u/L Absolute Lymphs (auto) 1.56 (1.18-3.74) x10^3/uL Absolute Monos (auto) 0.77 (0.24-0.86) x10^3/uL Absolute Nucleated RBC 0.00 (0.00-0.012) x10^3u/L Lymphocytes % 18.8 L (19.3-51.7) % Monocytes % 9.3 (4.7-12.5) % Eosinophils % 1.0 (0.7-5.8) % Basophils % 1.1 (0.1-1.2) % Absolute Granulocytes 5.79 (1.56-6.13) x10^3/uL Basophils # 0.09 H (0.01-0.08) x10^3/uL Sodium 138 (135-145) mmol/L Potassium 3.6 (3.5-5.1) mmol/L Chloride 107 (98-107) mmol/L Carbon Dioxide 20 L (22-30) mmol/L Anion Gap 14.7 (5-15) MEQ/L BUN 4 L (7-17) mg/dL Creatinine 0.66 (0.52-1.04) mg/dL Estimated GFR 113.0 ML/MIN Glucose 163 H (74-106) mg/dL Calcium 9.2 (8.4-10.2) mg/dL Magnesium (1.6-2.3) mg/dL Total Bilirubin 0.90 (0.2-1.3) mg/dL AST 42 H (14-36) U/L ALT 29 (0-35) U/L Alkaline Phosphatase 71 (38-126) U/L Troponin I (0.000-0.033) ng/mL Serum Total Protein 7.7 (6.3-8.2) g/dL Albumin 4.3 (3.5-5.0) g/dL Lipase 61 (23-300) U/L Urine Color (Yellow) Urine Appearance (Clear) Urine pH (4.6-8.0) Ur Specific [place] (1.005-1.030) Urine Protein (Negative) Urine Glucose (UA) (Negative) mg/dL Urine Ketones (Negative) Urine Blood (Negative) Urine Nitrite (Negative) Urine Bilirubin (Negative) Urine Urobilinogen (0.2) mg/dL Ur Leukocyte Esterase (Negative) U Hyaline Cast (Auto) (0-2) /LPF Urine Microscopic RBC (0-5) /HPF Urine Microscopic WBC (0-5) /HPF Ur Epithelial Cells (None Seen) /HPF Urine Bacteria (None Seen) /HPF Urine Culture Reflexed (NO) Urine HCG, Qual (NEGATIVE) Salicylates < 1.0 L (2-20) mg/dL Urine Opiates Level (NEGATIVE) Ur Methadone (NEGATIVE) Acetaminophen < 10 L (10-30) ug/ml Urine Barbiturates (NEGATIVE) Ur Phencyclidine (PCP) (NEGATIVE) Urine Amphetamine (NEGATIVE) U Benzodiazepine Level (NEGATIVE) Urine Cocaine (NEGATIVE) Urine Marijuana (THC) (NEGATIVE) Ethyl Alcohol < 10 (0-10) mg/dL 12/04/24 12/04/24 12/04/24 Range/Units 12:25 12:33 12:33 WBC (3.98-10.04) x10^3/uL RBC (3.93-5.22) x10^6/uL Hgb (11.2-15.7) g/dL Hct (34.1-44.9) % MCV (79.4-94.8) fL MCH (25.6-32.2) pg MCHC (32.2-35.5) g/dL RDW (11.7-14.4) % Plt Count (182-369) x10^3/uL MPV (9.4-12.3) fL Gran % (34.0-71.1) % Immature Gran % (Auto) (0.001-0.429) % Nucleat RBC Rel Count (0.00-0.2) % Eos # (Auto) (0.04-0.36) x10^3/uL Immature Gran # (Auto) (0.001-0.031) x10^3u/L Absolute Lymphs (auto) (1.18-3.74) x10^3/uL Absolute Monos (auto) (0.24-0.86) x10^3/uL Absolute Nucleated RBC (0.00-0.012) x10^3u/L Lymphocytes % (19.3-51.7) % Monocytes % (4.7-12.5) % Eosinophils % (0.7-5.8) % Basophils % (0.1-1.2) % Absolute Granulocytes (1.56-6.13) x10^3/uL Basophils # (0.01-0.08) x10^3/uL Sodium (135-145) mmol/L Potassium (3.5-5.1) mmol/L Chloride (98-107) mmol/L Carbon Dioxide (22-30) mmol/L Anion Gap (5-15) MEQ/L BUN (7-17) mg/dL Creatinine (0.52-1.04) mg/dL Estimated GFR ML/MIN Glucose (74-106) mg/dL Calcium (8.4-10.2) mg/dL Magnesium (1.6-2.3) mg/dL Total Bilirubin (0.2-1.3) mg/dL AST (14-36) U/L ALT (0-35) U/L Alkaline Phosphatase (38-126) U/L Troponin I < 0.012 (0.000-0.033) ng/mL Serum Total Protein (6.3-8.2) g/dL Albumin (3.5-5.0) g/dL Lipase (23-300) U/L Urine Color Yellow (Yellow) Urine Appearance Cloudy A (Clear) Urine pH 8.0 (4.6-8.0) Ur Specific [place] 1.020 (1.005-1.030) Urine Protein Trace A (Negative) Urine Glucose (UA) Negative (Negative) mg/dL Urine Ketones Negative (Negative) Urine Blood Negative (Negative) Urine Nitrite Negative (Negative) Urine Bilirubin Negative (Negative) Urine Urobilinogen 0.2 (0.2) mg/dL Ur Leukocyte Esterase Negative (Negative) U Hyaline Cast (Auto) NONE SEEN (0-2) /LPF Urine Microscopic RBC 0-2 (0-5) /HPF Urine Microscopic WBC 6-10 A (0-5) /HPF Ur Epithelial Cells Many A (None Seen) /HPF Urine Bacteria Rare A (None Seen) /HPF Urine Culture Reflexed NO (NO) Urine HCG, Qual (NEGATIVE) Salicylates (2-20) mg/dL Urine Opiates Level NEGATIVE (NEGATIVE) Ur Methadone NEGATIVE (NEGATIVE) Acetaminophen (10-30) ug/ml Urine Barbiturates NEGATIVE (NEGATIVE) Ur Phencyclidine (PCP) NEGATIVE (NEGATIVE) Urine Amphetamine NEGATIVE (NEGATIVE) U Benzodiazepine Level NEGATIVE (NEGATIVE) Urine Cocaine NEGATIVE (NEGATIVE) Urine Marijuana (THC) POSITIVE A (NEGATIVE) Ethyl Alcohol (0-10) mg/dL 12/04/24 12/04/24 12/04/24 Range/Units 16:10 20:19 Unknown WBC (3.98-10.04) x10^3/uL RBC (3.93-5.22) x10^6/uL Hgb (11.2-15.7) g/dL Hct (34.1-44.9) % MCV (79.4-94.8) fL MCH (25.6-32.2) pg MCHC (32.2-35.5) g/dL RDW (11.7-14.4) % Plt Count (182-369) x10^3/uL MPV (9.4-12.3) fL Gran % (34.0-71.1) % Immature Gran % (Auto) (0.001-0.429) % Nucleat RBC Rel Count (0.00-0.2) % Eos # (Auto) (0.04-0.36) x10^3/uL Immature Gran # (Auto) (0.001-0.031) x10^3u/L Absolute Lymphs (auto) (1.18-3.74) x10^3/uL Absolute Monos (auto) (0.24-0.86) x10^3/uL Absolute Nucleated RBC (0.00-0.012) x10^3u/L Lymphocytes % (19.3-51.7) % Monocytes % (4.7-12.5) % Eosinophils % (0.7-5.8) % Basophils % (0.1-1.2) % Absolute Granulocytes (1.56-6.13) x10^3/uL Basophils # (0.01-0.08) x10^3/uL Sodium (135-145) mmol/L Potassium (3.5-5.1) mmol/L Chloride (98-107) mmol/L Carbon Dioxide (22-30) mmol/L Anion Gap (5-15) MEQ/L BUN (7-17) mg/dL Creatinine (0.52-1.04) mg/dL Estimated GFR ML/MIN Glucose (74-106) mg/dL Calcium (8.4-10.2) mg/dL Magnesium (1.6-2.3) mg/dL Total Bilirubin (0.2-1.3) mg/dL AST (14-36) U/L ALT (0-35) U/L Alkaline Phosphatase (38-126) U/L Troponin I < 0.012 < 0.012 (0.000-0.033) ng/mL Serum Total Protein (6.3-8.2) g/dL Albumin (3.5-5.0) g/dL Lipase (23-300) U/L Urine Color (Yellow) Urine Appearance (Clear) Urine pH (4.6-8.0) Ur Specific [place] (1.005-1.030) Urine Protein (Negative) Urine Glucose (UA) (Negative) mg/dL Urine Ketones (Negative) Urine Blood (Negative) Urine Nitrite (Negative) Urine Bilirubin (Negative) Urine Urobilinogen (0.2) mg/dL Ur Leukocyte Esterase (Negative) U Hyaline Cast (Auto) (0-2) /LPF Urine Microscopic RBC (0-5) /HPF Urine Microscopic WBC (0-5) /HPF Ur Epithelial Cells (None Seen) /HPF Urine Bacteria (None Seen) /HPF Urine Culture Reflexed (NO) Urine HCG, Qual NEGATIVE (NEGATIVE) Salicylates (2-20) mg/dL Urine Opiates Level (NEGATIVE) Ur Methadone (NEGATIVE) Acetaminophen (10-30) ug/ml Urine Barbiturates (NEGATIVE) Ur Phencyclidine (PCP) (NEGATIVE) Urine Amphetamine (NEGATIVE) U Benzodiazepine Level (NEGATIVE) Urine Cocaine (NEGATIVE) Urine Marijuana (THC) (NEGATIVE) Ethyl Alcohol (0-10) mg/dL 12/05/24 12/05/24 12/05/24 Range/Units 05:30 05:30 06:02 WBC 8.6 (3.98-10.04) x10^3/uL RBC 4.37 (3.93-5.22) x10^6/uL Hgb 14.4 (11.2-15.7) g/dL Hct 42.3 (34.1-44.9) % MCV 96.8 H (79.4-94.8) fL MCH 33.0 H (25.6-32.2) pg MCHC 34.0 (32.2-35.5) g/dL RDW 12.8 (11.7-14.4) % Plt Count 228 (182-369) x10^3/uL MPV 8.7 L (9.4-12.3) fL Gran % (34.0-71.1) % Immature Gran % (Auto) (0.001-0.429) % Nucleat RBC Rel Count (0.00-0.2) % Eos # (Auto) (0.04-0.36) x10^3/uL Immature Gran # (Auto) (0.001-0.031) x10^3u/L Absolute Lymphs (auto) (1.18-3.74) x10^3/uL Absolute Monos (auto) (0.24-0.86) x10^3/uL Absolute Nucleated RBC (0.00-0.012) x10^3u/L Lymphocytes % (19.3-51.7) % Monocytes % (4.7-12.5) % Eosinophils % (0.7-5.8) % Basophils % (0.1-1.2) % Absolute Granulocytes (1.56-6.13) x10^3/uL Basophils # (0.01-0.08) x10^3/uL Sodium 135 (135-145) mmol/L Potassium 2.9 L* (3.5-5.1) mmol/L Chloride 103 (98-107) mmol/L Carbon Dioxide 24 (22-30) mmol/L Anion Gap 11.7 (5-15) MEQ/L BUN 5 L (7-17) mg/dL Creatinine 0.69 (0.52-1.04) mg/dL Estimated GFR 111.8 ML/MIN Glucose 92 (74-106) mg/dL Calcium 8.0 L (8.4-10.2) mg/dL Magnesium 1.0 L* (1.6-2.3) mg/dL Total Bilirubin 2.10 H (0.2-1.3) mg/dL AST 38 H (14-36) U/L ALT 23 (0-35) U/L Alkaline Phosphatase 62 (38-126) U/L Troponin I (0.000-0.033) ng/mL Serum Total Protein 6.6 (6.3-8.2) g/dL Albumin 3.5 (3.5-5.0) g/dL Lipase (23-300) U/L Urine Color (Yellow) Urine Appearance (Clear) Urine pH (4.6-8.0) Ur Specific [place] (1.005-1.030) Urine Protein (Negative) Urine Glucose (UA) (Negative) mg/dL Urine Ketones (Negative) Urine Blood (Negative) Urine Nitrite (Negative) Urine Bilirubin (Negative) Urine Urobilinogen (0.2) mg/dL Ur Leukocyte Esterase (Negative) U Hyaline Cast (Auto) (0-2) /LPF Urine Microscopic RBC (0-5) /HPF Urine Microscopic WBC (0-5) /HPF Ur Epithelial Cells (None Seen) /HPF Urine Bacteria (None Seen) /HPF Urine Culture Reflexed (NO) Urine HCG, Qual (NEGATIVE) Salicylates (2-20) mg/dL Urine Opiates Level (NEGATIVE) Ur Methadone (NEGATIVE) Acetaminophen (10-30) ug/ml Urine Barbiturates (NEGATIVE) Ur Phencyclidine (PCP) (NEGATIVE) Urine Amphetamine (NEGATIVE) U Benzodiazepine Level (NEGATIVE) Urine Cocaine (NEGATIVE) Urine Marijuana (THC) (NEGATIVE) Ethyl Alcohol (0-10) mg/dL - Radiology Exams Ordered Rad Exams-Entire Visit: Radiology Procedures Category Date Time Status ABDOMEN AND PELVIS W CONTRAST [CT] Stat Exams 12/04/24 12:56 Completed - Procedures and Test Procedures and Tests throughout Hospitalization: Therapy Orders & Screens 12/04/24 17:23 EKG DAILY Comment: Diagnosis: Alcohol withdrawal 12/04/24 18:43 Smoking Cessation Education ONCE Comment: Diagnosis: anxiety, vomiting Smoking Status: Light tobacco smoker Have you smoked in the past 12 months: Yes Approximately how many cigarettes per day: vapes Do you dip or chew tobacco: No Discharge Exam General Appearance: no apparent distress, alert Neurologic Exam: alert, oriented x 3, cooperative, normal mood/affect, nml cerebellar function, sensation nml, No motor deficits Eye Exam: PERRL, EOMI, eyes nml inspection Ears, Nose, Throat Exam: normal ENT inspection, pharynx normal, moist mucous membranes Neck Exam: normal inspection, non-tender, supple, full range of motion Respiratory Exam: normal breath sounds, lungs clear, No respiratory distress Cardiovascular Exam: regular rate/rhythm, normal heart sounds Gastrointestinal/Abdomen Exam: soft, tenderness (RUQ with palpation), No mass Pelvic Exam: deferred Rectal Exam: deferred Back Exam: normal inspection, normal range of motion, No CVA tenderness, No vertebral tenderness Extremity Exam: normal inspection, normal range of motion Skin Exam: normal color, warm, dry Final Diagnosis/Problem List - Final Discharge Diagnosis/Problem (1) Anxiety Current Visit: Yes Status: Acute Code(s): F41.9 - ANXIETY DISORDER, UNSPECIFIED (2) Tetrahydrocannabinol (THC) use disorder, mild, abuse Current Visit: Yes Status: Acute Assessment & Plan: ( Code(s): F12.10 - CANNABIS ABUSE, UNCOMPLICATED (3) Abdominal pain Current Visit: Yes Status: Acute Assessment & Plan: 1) Anxiety Current Visit: Yes Status: Acute Assessment & Plan: - psych consult- safety plan in place, f/u with OP counseling- ok to d/c. - Hydroxyzine BID Code(s): F41.9 - ANXIETY DISORDER, UNSPECIFIED (2) Tetrahydrocannabinol (THC) use disorder, mild, abuse Current Visit: Yes Status: Acute Assessment & Plan: - admits to taking 2 gummies last night d/t anxiety Code(s): F12.10 - CANNABIS ABUSE, UNCOMPLICATED (3) Abdominal pain Current Visit: Yes Status: Acute Assessment & Plan: - CT abd negative - CBC, CMP reviewed - IV fluids - tylenol - heating pad - lipase WNL 12/05 - Bili 2.10- may be 2:2 vomiting Code(s): R10.9 - UNSPECIFIED ABDOMINAL PAIN Code(s): R10.9 - UNSPECIFIED ABDOMINAL PAIN (4) Hypomagnesemia Current Visit: Yes Status: Acute Assessment & Plan: - MG+ 1.0 replaced- trend - resolved Code(s): E83.42 - HYPOMAGNESEMIA (5) Hypokalemia Current Visit: Yes Status: Acute Assessment & Plan: - K+ 2.9- replaced- trend - resolved Code(s): E87.6 - HYPOKALEMIA (6) Smoker Current Visit: Yes Status: Acute Assessment & Plan: - nicotine patch - education provided on cessation Code(s): F17.200 - NICOTINE DEPENDENCE, UNSPECIFIED, UNCOMPLICATED (7) Alcohol use Current Visit: Yes Status: Acute Assessment & Plan: - pt reports recent drinking a wine bottle full of vodka prior to admission- UDS negative for ETOH - Pt reports 6 months sober prior to this - Pt follows with a substance abuse program/ Recovery center- OP - Not on [facility] protocol as she has no alcohol in her system- not displaying and S/S of alcohol withdrawal Code(s): F10.90 - ALCOHOL USE, UNSPECIFIED, UNCOMPLICATED - Discharge Discharge Date: 12/05/24 Disposition: Home, Self-Care Condition: Stable Prescriptions: Continue hydrOXYzine HCL [Hydroxyzine HCl] 50 mg PO DAILY PRN PRN Reason: Anxiety Ondansetron ODT 4 MG [Zofran Odt 4 mg] 1 tab PO Q4HPRN PRN PRN Reason: Nausea Follow up with: DOCTOR,NO FAMILY [Primary Care Provider] -
[2024-12-05 11:54] VITALS: BP 137/73; PULSE 92; RESP 20; TEMP 97.8; O2SAT 93
[2024-12-05 12:28] LABS: MAGNESIUM 2.1 mg/dL (1.6-2.3); Potassium 4.2 mmol/L (3.5-5.1)
== END 2024-12-05 16:03 | disposition home or self-care (01) ==
LOC: ED 11:15 → MED SURG 17:10
PROVIDERS: ADMIT Internal Medicine; ATTEND Internal Medicine
DX: F41.9 Anxiety disorder, unspecified (principal); F12.10 Cannabis abuse, uncomplicated; R10.9 Unspecified abdominal pain; E83.42 Hypomagnesemia; E87.6 Hypokalemia; F17.200 Nicotine dependence, unspecified, uncomplicated; R10.13 Epigastric pain; F10.90 Alcohol use, unspecified, uncomplicated
CPT/HCPCS: 36415; 74177; 80053; 80143; 80179; 80307; 81001; 81025; 82077; 83690; 83735; 84132; 84484; 85025; 85027; 93005; 93041; 93268; 96360; 96374; 96375; 96376; 99291; 99292; G0378; Q3014; 99285; J2060; J2405; J3475; A9270-GY